=== PATIENT | female | born 1935 | race Caucasian/White ===

== ENCOUNTER 2017-01-31 13:00 | Inpatient (IN) | payer OTHER ==
[~2017-01-31] VITALS: Ht 154.9 cm; Wt 90.1 kg
[2017-01-31] MEDS ORDERED: SOD CHLORIDE 0.9% 500 ML IV STA (13:34)
[2017-01-31 13:51] LABS: ADD SCAN DIFF NO
[2017-01-31 13:53] LABS: BASOPHIL # 0.1 10^3/ul (0.0-0.1); EOSINOPHILS # 0.3 10^3/ul (0.0-0.5); EOSINOPHILS % 3.4 % (0.0-7.0); HEMATOCRIT 37.4 % (37.0-47.0); HEMOGLOBIN 12.1 g/dl (12.0-16.0); LYMPHOCYTES # 2.5 10^3/ul (0.8-2.9); LYMPHOCYTES % 28.5 % (15.0-51.0); MEAN CORPUSCULAR HEMOGLOBIN 27.8 pg (29.0-33.0); MEAN CORPUSCULAR HGB CONC 32.4 g/dl (32.0-37.0); MEAN CORPUSCULAR VOLUME 85.8 fl (82.0-101.0); MEAN PLATELET VOLUME 9.4 fl (7.4-10.4); MONOCYTE # 0.7 10^3/ul (0.3-0.9); MONOCYTES % 7.6 % (0.0-11.0); NEUTROPHIL # 5.2 10^3/ul (1.6-7.5); PLATELET COUNT 182 10^3/UL (140-415); RED BLOOD COUNT 4.36 10^6/ul (4.20-5.40); RED CELL DISTRIBUTION WIDTH 14.7 % (11.5-14.5); WHITE BLOOD COUNT 8.8 10^3/ul (4.8-10.8)
[2017-01-31] MEDS ORDERED: ASPIRIN 81 MG TAB PO ONE (14:00)
[2017-01-31] MEDS ORDERED: HYD25 PO (14:06)
[2017-01-31] MEDS ORDERED: LISI10TA2 PO (14:06)
[2017-01-31] MEDS ORDERED: ATEN100T PO (14:07)
[2017-01-31 14:13] LABS: ALANINE AMINOTRANSFERASE 36 IU/L (13-69); ALBUMIN 4.4 g/dl (3.3-4.9); ALBUMIN/GLOBULIN RATIO 1.51; ALKALINE PHOSPHATASE 75 IU/L (42-121); ANION GAP 18 (8-16); ASPARTATE AMINO TRANSFERASE 35 IU/L (15-46); BILIRUBIN,INDIRECT 0.3 mg/dl (0-1.1); BILIRUBIN,TOTAL 0.3 mg/dl (0.2-1.3); BLOOD UREA NITROGEN 17 mg/dl (7-20); CALCIUM 9.6 mg/dl (8.4-10.2); CARBON DIOXIDE 27 mmol/L (21-31); CHLORIDE 103 mmol/L (97-110); CREATININE 0.85 mg/dl (0.44-1.00); GLUCOSE 90 mg/dl (70-220); POTASSIUM 4.1 mmol/L (3.5-5.1); SODIUM 144 mmol/L (135-144); TOTAL PROTEIN 7.3 g/dl (6.1-8.1)
--- NOTE | 2017-01-31 14:15 | RADRPT ---
PROCEDURE: XR Chest. CLINICAL INDICATION: 81-year-old female with abdominal pain. TECHNIQUE: Single frontal view of the chest was obtained. COMPARISON: None FINDINGS: The soft tissues are generous. There are degenerative osteophytes in the thoracic spine with a mild levocurvature in the mid thoracic spine. The heart, cardiomediastinal silhouette and hilar structu res are normal. The pulmonary vasculature is normal. There is a left-sided aorta. The lungs are eder ar. The costophrenic angles are normal. IMPRESSION: 1. Obesity. 2. 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 3. There is no evidence of active cardiopulmonary disease. RPTAT:AAJJ Physician Marv Date Time Electronically viewed and signed by Physician Marv on 01/31/2017 14:14 EREN/
[2017-01-31 14:24] LABS: TROPONIN-I < 0.012 ng/ml (0.00-0.12)
[2017-01-31 14:40] LABS: ADD UMIC YES; UR ASCORBIC ACID 20 mg/dL (NEGATIVE); UR BACTERIA FEW /HPF (NONE SEEN); UR BILIRUBIN (Dip) NEGATIVE (NEGATIVE); UR BLOOD (Dip) NEGATIVE (NEGATIVE); UR CLARITY CLEAR (CLEAR); UR COLOR YELLOW (YELLOW); UR GLUCOSE (Dip) NEGATIVE (NEGATIVE); UR KETONES (Dip) NEGATIVE (NEGATIVE); UR LEUKOCYTE ESTERASE (Dip) 1+ Leu/ul (NEGATIVE); UR MUCUS FEW /HPF (NONE SEEN); UR NITRITE (Dip) NEGATIVE (NEGATIVE); UR RBC 2 /HPF (0-5); UR SPECIFIC GRAVITY (Dip) 1.015 (1.003-1.030); UR SQUAMOUS EPITHELIAL CELL FEW /HPF (FEW); UR TOTAL PROTEIN (Dip) NEGATIVE (NEGATIVE); UR UROBILINOGEN (Dip) NEGATIVE (NEGATIVE)
--- NOTE | 2017-01-31 14:49 | ERA ---
ER Documentation Chief Complaint Date/Time DATE: 01/31/17 TIME: 14:47 Chief Complaint left sided intermittent chest pressure x4days HPI 81-year-old woman referred here by outside clinic for episodes of chest pain for the last 3 days. Episodes are described as pressure-like, nonradiating, nonexertional lasting for about 20-30 minutes. She denies abdominal pain, no weight loss, no fevers or chills, no vomiting or diarrhea, no headache or blurry vision. Patient denies dizziness or shortness of breath. Patient denies previous episodes of similar pain. ROS All systems reviewed and are negative except as per history of present illness. Medications Home Meds Reported Medications Atenolol* (Atenolol*) 100 Mg Tablet, 100 MG PO DAILY, #30 TAB 01/31/17 Hydrochlorothiazide* (Hydrochlorothiazide*) 25 Mg Tab, 25 MG PO DAILY, #30 TAB 01/31/17 Lisinopril* (Lisinopril*) 10 Mg Tablet, 10 MG PO DAILY, #30 TAB 01/31/17 Allergies Allergies: Coded Allergies: No Known Allergy (Unverified , 01/31/17) PMhx/Soc Hypertension History of Surgery: Yes Hx Cardiac Disorders: Yes (HTN) Hx Alcohol Use: No Hx Substance Use: No Hx Tobacco Use: No Smoking Status: Never smoker FmHx Family History: No diabetes Physical Exam Vitals Vital Signs Date Time Temp Pulse Resp B/P Pulse Ox O2 Delivery O2 Flow Rate FiO2 01/31/17 15:26 98.9 60 18 169/73 98 Room Air 01/31/17 13:04 98.9 71 18 141/74 98 Physical Exam GENERAL: Well-developed, well-nourished, well-hydrated, in no apparent distress , looks nontoxic in appearance HEENT: Moist mucous membranes, pink conjunctiva, no cervical spine tenderness or step-off deformities, no goiter, no jaundice or icterus, extraocular movements intact without pain. No submandibular induration, and no pharyngeal erythema NEURO: Alert and oriented 3, cranial nerves II through XII intact bilaterally, pupils equal round reactive to light, no focal deficits or facial asymmetry, sensation intact distally Strength 5/5 in upper and lower extremities bilaterally CARDIAC: Regular rate and rhythm, no murmurs rubs or gallops LUNGS: Clear bilaterally no wheezing crackles or stridor ABDOMEN: Soft nontender, no guarding, no rigidity, no rebound, no psoas sign no obturator sign. Normoactive bowel sounds SKIN: Warm and dry to touch, no abrasions, contusions, or hematomas, no lacerations, no ecchymosis, no target lesions, and without ulcers EXTREMITIES: No clubbing cyanosis or edema, calves are bilaterally symmetrical, no Homans sign, no popliteal cord sign. Distal pulses equal and bilateral PSYCH: Normal affect without agitation or irritability Result Diagram: 01/31/17 1340 01/31/17 1340 Results 24 hrs Laboratory Tests Test 01/31/17 13:40 01/31/17 14:23 White Blood Count 8.810^3/ul Red Blood Count 4.3610^6/ul Hemoglobin 12.1g/dl Hematocrit 37.4% Mean Corpuscular Volume 85.8fl Mean Corpuscular Hemoglobin 27.8pg Mean Corpuscular Hemoglobin Concent 32.4g/dl Red Cell Distribution Width 14.7% Platelet Count 30546^3/UL Mean Platelet Volume 9.4fl Neutrophils % 59.0% Lymphocytes % 28.5% Monocytes % 7.6% Eosinophils % 3.4% Basophils % 1.0% Nucleated Red Blood Cells % 0.0/100WBC Neutrophils # 5.210^3/ul Lymphocytes # 2.510^3/ul Monocytes # 0.710^3/ul Eosinophils # 0.310^3/ul Basophils # 0.110^3/ul Nucleated Red Blood Cells # 0.010^3/ul Sodium Level 144mmol/L Potassium Level 4.1mmol/L Chloride Level 103mmol/L Carbon Dioxide Level 27mmol/L Anion Gap 18 Blood Urea Nitrogen 17mg/dl Creatinine 0.85mg/dl Glucose Level 90mg/dl Calcium Level 9.6mg/dl Total Bilirubin 0.3mg/dl Direct Bilirubin 0.00mg/dl Indirect Bilirubin 0.3mg/dl Aspartate Amino Transf (AST/SGOT) 35IU/L Alanine Aminotransferase (ALT/SGPT) 36IU/L Alkaline Phosphatase 75IU/L Troponin I < 0.012ng/ml Total Protein 7.3g/dl Albumin 4.4g/dl Globulin 2.90g/dl Albumin/Globulin Ratio 1.51 Lipase 96U/L Urine Color YELLOW Urine Clarity CLEAR Urine pH 6.0 Urine Specific [place] 1.015 Urine Ketones NEGATIVEmg/dL Urine Nitrite NEGATIVEmg/dL Urine Bilirubin NEGATIVEmg/dL Urine Urobilinogen NEGATIVEmg/dL Urine Leukocyte Esterase 1+Lance/ul Urine Microscopic RBC 2/HPF Urine Microscopic WBC 24/HPF Urine Squamous Epithelial Cells FEW/HPF Urine Bacteria FEW/HPF Urine Mucus FEW/HPF Urine Hemoglobin NEGATIVEmg/dL Urine Glucose NEGATIVEmg/dL Urine Total Protein NEGATIVEmg/dl Current Medications Medications (Trade) Dose Ordered Sig/Bailee Route PRN Reason Start Time Stop Time Status Last Admin Dose Admin Sodium Chloride (NS) 500 ml @ 500 mls/hr Q1H STAT IV 01/31/17 13:34 01/31/17 14:33 DC 01/31/17 13:47 Aspirin (Aspirin) 324 mg ONCE ONCE PO 01/31/17 14:00 01/31/17 14:01 DC 01/31/17 13:46 Cephalexin (Keflex) 500 mg ONCE ONCE PO 01/31/17 15:00 01/31/17 15:04 DC 01/31/17 15:12 Procedures/MDM IV line was established patient was placed on cardiac surgeon rhythm strip revealed a sinus rhythm at about 60 bpm with upright P and T waves. Patient was afebrile. EKG performed, read by me: 64 bpm, normal sinus rhythm, normal axis, no acute ST segment changes, narrow QRS complex, with good R-wave progression in precordial leads. Chest X-ray 1V Interpreted by me: Soft Tissue: No acute abnormalities Bones: No acute abnormalities Mediastinum/Cardiac Silhouette/Lungs: No acute abnormalities CBC and electrolytes are normal, liver function tests are normal, troponin was negative. Urine analysis was concerning for early urinary tract infection I treated her here with cephalexin 500 mg p.o. Given the patient's symptoms and referral from clinic she will be admitted to telemetry setting for continued medical management cardiology consultation. Departure Diagnosis: Primary Impression: Chest pain Qualified Code: R07.9 - Chest pain, unspecified type Additional Impression: UTI (urinary tract infection) Qualified Code: N30.00 - Acute cystitis without hematuria Condition: MARSHA Lua MD Jan 31, 2017 14:49
[2017-01-31] MEDS ORDERED: CEPHALEXIN 500 MG CAP PO ONE (15:00)
--- NOTE | 2017-01-31 15:46 | RADRPT ---
Echocardiogram Report Patient Name: FABI MIDDLETON Gender: Female Date: 1935 Study Date: 31-Jan-2017 Supervisor Liquid Yeast: Bria Can SUBHASH Location: [facility] Ref. Physician: MEHUL SWANSON Quality: Adequate Procedures: Transthoracic echocardiogram with complete 2D, M-Mode, and doppler examination. Indications: Chest Pain. 2D/M Mode Doppler Measurement Value Normal Ranges Measurement Value Normal Ranges LVIDd 2D 3.4 3.5 - 5.6 cm AV Peak Connor 1.4 m/sec LVIDs 2D 2.2 2.1 - 4.1 cm AV Peak PG 7.3 mmHg LVPWd 2D 1.0 0.6 - 1.1 cm MV E Peak Connor 0.7 m/sec IVSd 2D 1.1 0.6 - 1.1 cm MV A Peak Connor 1.0 m/sec AoR Diam 2D 2.8 2.0 - 3.7 cm MV E/A 0.7 EDV 2D 46.6 cm3 MV Decel Time 265 msec ESV 2D 10.0 cm3 MV Decel [place] 3 LA Dimen 2D 3.4 2.3 - 4.0 cm MV E/A 0.7 TR Peak Connor 3.0 m/sec TR Peak PG 34.8 mmHg RVSP 38.0 mmHg Findings Left Ventricle: Normal left ventricular systolic function. Normal left ventricular cavity size. Normal left ventricular wall thickness. Ejection fraction is visually estimated at 60 %. Tissue Doppler/Mitral Doppler indices are consistent with impaired relaxation (Stage I diastolic dysfunction). Right Ventricle: Normal right ventricular size. Normal right ventricular systolic function. Left Atrium: The left atrium is normal in size. Right Atrium: The right atrium is normal in size. Mitral Valve: Normal appearance and function of the mitral valve with trace physiologic regurgitation. Aortic Valve: No hemodynamically significant aortic stenosis by doppler. Aortic cusps appear mildly calcified. Trace aortic valve regurgitation. Tricuspid Valve: Normal appearance and function of the tricuspid valve with trace physiologic regurgitation. Estimated peak PA systolic pressure 38 mmHg. Pulmonic Valve: Pulmonic valve not well visualized. There is trace pulmonic regurgitation. Pericardium: Normal pericardium with no significant pericardial effusion. Aorta: Normal aortic root. IVC: Normal size and normal respiratory collapse consistent with normal right atrial pressure. Conclusions Normal left ventricular systolic function. Normal left ventricular cavity size. Normal left ventricular wall thickness. Ejection fraction is visually estimated at 60 %. Tissue Doppler/Mitral Doppler indices are consistent with impaired relaxation (Stage I diastolic dysfunction). Normal right ventricular size. Normal right ventricular systolic function. The left atrium is normal in size. The right atrium is normal in size. No significant valvular stenosis or regurgitation seen. Normal pericardium with no significant pericardial effusion. Electronically Signed By: Mehul Swanson 31-Jan-2017 15:45:34 -0700 Patient Name: FABI MIDDLETON Study Date: 31-Jan-2017 [id number]
--- NOTE | 2017-01-31 16:51 | CONS ---
Date/Time of Note Date/Time of Note DATE: 01/31/17 TIME: 16:46 Assessment/Plan Assessment/Plan Additional Assessment/Plan Chest pain Hypertension Preserved ejection fraction -Patient's chest discomfort is elicited with palpation of chest wall and with left arm movements and positional. Symptoms have been going on for 4-5 days. Initial cardiac enzymes are negative, ECG without any significant ischemic abnormalities. Echocardiogram with preserved ejection fraction. Would obtain serial cardiac enzymes, start antihypertensive medications. Consultation Date/Type/Reason Admit Date/Time Type of Consultation: cv Reason for Consultation Chest pain Hx of Present Illness This is an 81-year-old female with history of hypertension and arthritis who presents with chest pain. Chest discomfort has been going on for the past 4-5 days. Pain is worse with left arm movements and leaning on the left side. With sitting up, pain is improved, with sitting back, pain is worse. With exertion, discomfort is better. When she lifts her left arm or stretches, the chest discomfort is worse. There is no associated shortness of breath, dizziness or lightheadedness, nausea or sweating. She saw her primary physician today and was recommended to come to the emergency room for further evaluation and care. She denies any fevers or chills, cough or abdominal pain. 12 point review of systems was performed with all pertinent positives and negatives mentioned above and all else is negative Past Medical History Arthritis Medical History: hypertension Past Surgical History Orthopedic surgery Family History Significant Family History: no pertinent family hx Social History Alcohol Use: none Smoking Status: Never smoker Other Social History Lives at home Exam/Review of Systems Vital Signs Vitals Vital Signs Date Time Temp Pulse Resp B/P Pulse Ox O2 Delivery O2 Flow Rate FiO2 01/31/17 15:26 98.9 60 18 169/73 98 Room Air Exam No apparent distress, family at bedside Constitutional: alert, obese, oriented Head: normocephalic Neck: supple Respiratory: clear to auscultation, normal air movement Cardiovascular: other (S1-S2 heard, no murmurs appreciated), regular rate and rhythm Gastrointestinal: bowel sounds, non-tender, other (No guarding), soft Musculoskeletal: other (Tender to palpation left side of chest wall) Extremities: other (No edema seen) Results Result Diagram: 01/31/17 1340 01/31/17 1340 Results 24 hrs Laboratory Tests Test 01/31/17 13:40 01/31/17 14:23 White Blood Count 8.8 Red Blood Count 4.36 Hemoglobin 12.1 Hematocrit 37.4 Mean Corpuscular Volume 85.8 Mean Corpuscular Hemoglobin 27.8 L Mean Corpuscular Hemoglobin Concent 32.4 Red Cell Distribution Width 14.7 H Platelet Count 182 Mean Platelet Volume 9.4 Neutrophils % 59.0 Lymphocytes % 28.5 Monocytes % 7.6 Eosinophils % 3.4 Basophils % 1.0 Nucleated Red Blood Cells % 0.0 Neutrophils # 5.2 Lymphocytes # 2.5 Monocytes # 0.7 Eosinophils # 0.3 Basophils # 0.1 Nucleated Red Blood Cells # 0.0 Sodium Level 144 Potassium Level 4.1 Chloride Level 103 Carbon Dioxide Level 27 Anion Gap 18 H Blood Urea Nitrogen 17 Creatinine 0.85 Glucose Level 90 Calcium Level 9.6 Total Bilirubin 0.3 Direct Bilirubin 0.00 Indirect Bilirubin 0.3 Aspartate Amino Transf (AST/SGOT) 35 Alanine Aminotransferase (ALT/SGPT) 36 Alkaline Phosphatase 75 Troponin I < 0.012 Total Protein 7.3 Albumin 4.4 Globulin 2.90 Albumin/Globulin Ratio 1.51 Lipase 96 Urine Color YELLOW Urine Clarity CLEAR Urine pH 6.0 Urine Specific [place] 1.015 Urine Ketones NEGATIVE Urine Nitrite NEGATIVE Urine Bilirubin NEGATIVE Urine Urobilinogen NEGATIVE Urine Leukocyte Esterase 1+ H Urine Microscopic RBC 2 Urine Microscopic WBC 24 H Urine Squamous Epithelial Cells FEW Urine Bacteria FEW A Urine Mucus FEW A Urine Hemoglobin NEGATIVE Urine Glucose NEGATIVE Urine Total Protein NEGATIVE Procedures Procedures ECG was sinus rhythm, normal QRS, no significant ST-T wave abnormality seen Mehul Masters DO Jan 31, 2017 16:50
[2017-01-31 18:31] VITALS: TEMP 98.9
[2017-01-31 19:15] VITALS: PULSE 63
[2017-01-31 19:25] VITALS: PULSE 40
[2017-01-31 20:00] VITALS: BP_SYST 170; BP_SYST 222; BP_DIAS 72; BP_DIAS 89; RESP 17; Ht 154.9 cm; Wt 90.1 kg
[2017-01-31] MEDS ORDERED: ACETAMINOPHEN 325 MG TAB PO PRN (20:00)
[2017-01-31] MEDS ORDERED: hydrALAzine 20 MG INJ IV PRN (20:00)
[2017-01-31] MEDS ORDERED: NACL 0.9% 3 ML SYG IV SCH (20:00)
[2017-01-31] MEDS ORDERED: ONDANSETRON 4 MG INJ IV PRN (20:00)
[2017-01-31] MEDS ORDERED: NITROGLYCERIN (SL) 0.4 MG TAB SL PRN (20:00)
[2017-01-31] MEDS ORDERED: morphine 2 MG INJ IV PRN (20:00)
[2017-01-31] MEDS ORDERED: HYDROCODONE/APAP (5/325) TAB PO PRN (20:00)
[2017-01-31] MEDS ORDERED: ZOLPIDEM 5 MG TAB PO PRN (20:00)
[2017-01-31 20:05] VITALS: PULSE 60
[2017-01-31] MEDS: LISINOPRIL 10 MG TAB PO SCH (20:49)
[2017-01-31 22:26] LABS: CREATINE KINASE 141 IU/L (23-200)
[2017-01-31 22:35] LABS: CK-MB 1.81 ng/ml (0.0-2.4)
[2017-01-31 22:41] LABS: TROPONIN-I < 0.012 ng/ml (0.00-0.12)
[2017-02-01] VITALS: BP_SYST 162; BP_SYST 174; BP_DIAS 73; RESP 17
[2017-02-01 00:05] VITALS: PULSE 60
[2017-02-01 04:00] VITALS: BP 137/63; RESP 19
[2017-02-01 04:05] VITALS: PULSE 63
[2017-02-01 07:02] VITALS: BP 127/85; RESP 18
[2017-02-01 07:42] LABS: ADD SCAN DIFF NO
[2017-02-01 07:48] LABS: BASOPHIL # 0.1 10^3/ul (0.0-0.1); BASOPHILS % 1.2 % (0.0-2.0); EOSINOPHILS # 0.3 10^3/ul (0.0-0.5); EOSINOPHILS % 3.7 % (0.0-7.0); HEMATOCRIT 36.7 % (37.0-47.0); HEMOGLOBIN 12.1 g/dl (12.0-16.0); LYMPHOCYTES # 2.2 10^3/ul (0.8-2.9); LYMPHOCYTES % 27.9 % (15.0-51.0); MEAN CORPUSCULAR HEMOGLOBIN 28.2 pg (29.0-33.0); MEAN CORPUSCULAR VOLUME 85.5 fl (82.0-101.0); MEAN PLATELET VOLUME 10.1 fl (7.4-10.4); MONOCYTE # 0.5 10^3/ul (0.3-0.9); MONOCYTES % 6.7 % (0.0-11.0); NEUTROPHIL # 4.7 10^3/ul (1.6-7.5); PLATELET COUNT 176 10^3/UL (140-415); RED BLOOD COUNT 4.29 10^6/ul (4.20-5.40); RED CELL DISTRIBUTION WIDTH 14.5 % (11.5-14.5); WHITE BLOOD COUNT 7.8 10^3/ul (4.8-10.8)
[2017-02-01 08:07] VITALS: PULSE 73
[2017-02-01 08:20] LABS: CALCIUM 9.1 mg/dl (8.4-10.2); CHOL/HDL RATIO 4.6 RATIO; CREATININE 0.81 mg/dl (0.44-1.00); MAGNESIUM 1.7 mg/dl (1.7-2.5); POTASSIUM 3.8 mmol/L (3.5-5.1)
[2017-02-01] MEDS ORDERED: ENOXAPARIN 40 MG/0.4 ML SYG SC SCH (09:00)
[2017-02-01] MEDS ORDERED: ASPIRIN (EC) 81 MG TAB PO SCH (09:00)
--- NOTE | 2017-02-01 09:28 | PDOCDIS ---
Discharge Instructions CONDITION Patient Condition: Good HOME CARE INSTRUCTIONS: Diet Instructions: Regular ACTIVITY: Activity Restrictions: No Restrictions FOLLOW UP/APPOINTMENTS Follow-up Plan F/U WITH YOUR PCP IN 1-2 WEEKS EFREN CH Feb 01, 2017 09:27
[2017-02-01] MEDS: LISINOPRIL 10 MG TAB PO SCH (09:41)
--- NOTE | 2017-02-01 12:50 | HP ---
Date/Time of Note Date/Time of Note DATE: 02/01/17 TIME: 12:47 Assessment/Plan VTE Prophylaxis VTE Prophylaxis Intervention: LMWH Lines/Catheters IV C[facility]ter [facility]from [facility] [place] Urinary Cath still in place: No Assessment/Plan Chief Complaint/Hosp Course 1. Chest pain musculoskeletal as pain is exacerbated by movement of the arm and reproducible with palpation Cardiology consultation Trend troponins Cardiac meds 2. Hypertension-stable Continue home meds Prophylaxis: Lovenox Problems: HPI/ROS Admit Date/Time Admit Date/Time January 31, 2017 Hx of Present Illness Patient is a 1-year-old female with a history of hypertension otherwise no medical history. Patient presents with chest pain for the past several days exacerbated by movement of her arms. Patient reports a pressure-like pain, she denies any shortness of breath, nausea vomiting or diaphoresis. ROS Constitutional: improved, no complaints Eyes: no complaints ENT: no complaints Respiratory: no complaints Cardiovascular: chest pain Gastrointestinal: no complaints Genitourinary: no complaints Musculoskeletal: no complaints Skin: no complaints Neurologic: no complaints Endocrine: no complaints Lymphatic: no complaints Psychological: nl mood/affect, no complaints Immunologic: no complaints PMH/Family/Social Past Medical History Medical History: hypertension Past Surgical History Past Surgical Hx: no surgical history Family History Significant Family History: no pertinent family hx Social History Alcohol Use: none Smoking Status: Never smoker Drug Use: none Exam/Review of Systems Vital Signs Vitals Vital Signs Date Time Temp Pulse Resp B/P Pulse Ox O2 Delivery O2 Flow Rate FiO2 02/01/17 08:07 73 02/01/17 07:02 97.7 18 127/85 97 01/31/17 18:31 Room Air Intake and Output 01/31/17 01/31/17 02/01/17 15:00 23:00 07:00 Intake Total 750 ml Balance 750 ml Exam Constitutional: alert, oriented Respiratory: clear to auscultation Cardiovascular: regular rate and rhythm Gastrointestinal: soft, No distended Musculoskeletal: joint tenderness, nl extremities to inspection Labs Result Diagram: 02/01/17 0656 02/01/17 0646 EFREN CH Feb 01, 2017 12:50
--- NOTE | 2017-02-01 12:56 | DS ---
Date/Time of Note Date/Time of Note DATE: 02/01/17 TIME: 12:51 Discharge Summary Admission/Discharge Info Admit Date/Time Jan 31, 2017 at 14:50 Discharge Date/Time Feb 01, 2017 at 10:36 Discharge Diagnosis 1. Chest pain secondary to muscle skeletal pain ACS ruled out with negative troponins, echo shows no significant abnormalities 2. Hypertension: Stable Continue home meds Patient Condition: Good Consults Cardiology Hospital Course Patient is an 81-year-old female with a history of hypertension. Patient presented with chest pain ACS was ruled out. Patient was seen by cardiology troponins were negative and echo showed no significant abnormalities. Patient stated that her chest pain was worse when she moves her arms and was reproducible with palpation and was felt to be secondary to muscle skeletal pain. On the day of discharge patient's vitals, labs and physical exam are stable. She had no acute complaints and questions are answered. Home Meds Reported Medications Atenolol* (Atenolol*) 100 Mg Tablet, 100 MG PO DAILY, #30 TAB 01/31/17 Hydrochlorothiazide* (Hydrochlorothiazide*) 25 Mg Tab, 25 MG PO DAILY, #30 TAB 01/31/17 Lisinopril* (Lisinopril*) 10 Mg Tablet, 10 MG PO DAILY, #30 TAB 01/31/17 Follow-up Plan Follow-up with PCP in 1-2 weeks Primary Care Provider Not On Staff Doctor Time spent on discharge: > 30 minutes Pending Labs Laboratory Tests Test 01/31/17 13:40 01/31/17 14:23 01/31/17 22:00 02/01/17 06:46 White Blood Count 8.810^3/ul (4.8-10.8) Red Blood Count 4.3610^6/ul (4.20-5.40) Hemoglobin 12.1g/dl (12.0-16.0) Hematocrit 37.4% (37.0-47.0) Mean Corpuscular Volume 85.8fl (82.0-101.0) Mean Corpuscular Hemoglobin 27.8pg (29.0-33.0) Mean Corpuscular Hemoglobin Concent 32.4g/dl (32.0-37.0) Red Cell Distribution Width 14.7% (11.5-14.5) Platelet Count 64679^3/UL (140-415) Mean Platelet Volume 9.4fl (7.4-10.4) Neutrophils % 59.0% (39.0-77.0) Lymphocytes % 28.5% (15.0-51.0) Monocytes % 7.6% (0.0-11.0) Eosinophils % 3.4% (0.0-7.0) Basophils % 1.0% (0.0-2.0) Nucleated Red Blood Cells % 0.0/100WBC (0.0-0.0) Neutrophils # 5.210^3/ul (1.6-7.5) Lymphocytes # 2.510^3/ul (0.8-2.9) Monocytes # 0.710^3/ul (0.3-0.9) Eosinophils # 0.310^3/ul (0.0-0.5) Basophils # 0.110^3/ul (0.0-0.1) Nucleated Red Blood Cells # 0.010^3/ul (0.0-0.0) Sodium Level 144mmol/L (135-144) 139mmol/L (135-144) Potassium Level 4.1mmol/L (3.5-5.1) 3.8mmol/L (3.5-5.1) Chloride Level 103mmol/L (97-110) 107mmol/L (97-110) Carbon Dioxide Level 27mmol/L (21-31) 26mmol/L (21-31) Anion Gap 18 (8-16) 10 (8-16) Blood Urea Nitrogen 17mg/dl (7-20) 18mg/dl (7-20) Creatinine 0.85mg/dl (0.44-1.00) 0.81mg/dl (0.44-1.00) Glucose Level 90mg/dl (70-220) 118mg/dl (70-220) Calcium Level 9.6mg/dl (8.4-10.2) 9.1mg/dl (8.4-10.2) Total Bilirubin 0.3mg/dl (0.2-1.3) Direct Bilirubin 0.00mg/dl (0.00-0.20) Indirect Bilirubin 0.3mg/dl (0-1.1) Aspartate Amino Transf (AST/SGOT) 35IU/L (15-46) Alanine Aminotransferase (ALT/SGPT) 36IU/L (13-69) Alkaline Phosphatase 75IU/L (42-121) Troponin I < 0.012ng/ml (0.00-0.12) < 0.012ng/ml (0.00-0.12) Total Protein 7.3g/dl (6.1-8.1) Albumin 4.4g/dl (3.3-4.9) Globulin 2.90g/dl (1.3-3.2) Albumin/Globulin Ratio 1.51 Lipase 96U/L (23-300) Urine Color YELLOW (YELLOW) Urine Clarity CLEAR (CLEAR) Urine pH 6.0 (5.0-9.0) Urine Specific [place] 1.015 (1.003-1.030) Urine Ketones NEGATIVEmg/dL (NEGATIVE) Urine Nitrite NEGATIVEmg/dL (NEGATIVE) Urine Bilirubin NEGATIVEmg/dL (NEGATIVE) Urine Urobilinogen NEGATIVEmg/dL (NEGATIVE) Urine Leukocyte Esterase 1+Lance/ul (NEGATIVE) Urine Microscopic RBC 2/HPF (0-5) Urine Microscopic WBC 24/HPF (0-5) Urine Squamous Epithelial Cells FEW/HPF (FEW) Urine Bacteria FEW/HPF (NONE SEEN) Urine Mucus FEW/HPF (NONE SEEN) Urine Hemoglobin NEGATIVEmg/dL (NEGATIVE) Urine Glucose NEGATIVEmg/dL (NEGATIVE) Urine Total Protein NEGATIVEmg/dl (NEGATIVE) Creatine Kinase 141IU/L (23-200) Creatine Kinase Index 1.3 Creatinine Kinase MB (Mass) 1.81ng/ml (0.0-2.4) Phosphorus Level 3.0mg/dl (2.5-4.9) Magnesium Level 1.7mg/dl (1.7-2.5) Triglycerides Level 146mg/dl (0-149) Cholesterol Level 145mg/dl (100-200) LDL Cholesterol, Calculated 85mg/dl HDL Cholesterol 31mg/dl (33-92) Cholesterol/HDL Ratio 4.6RATIO Test 02/01/17 06:56 White Blood Count 7.810^3/ul (4.8-10.8) Red Blood Count 4.2910^6/ul (4.20-5.40) Hemoglobin 12.1g/dl (12.0-16.0) Hematocrit 36.7% (37.0-47.0) Mean Corpuscular Volume 85.5fl (82.0-101.0) Mean Corpuscular Hemoglobin 28.2pg (29.0-33.0) Mean Corpuscular Hemoglobin Concent 33.0g/dl (32.0-37.0) Red Cell Distribution Width 14.5% (11.5-14.5) Platelet Count 83371^3/UL (140-415) Mean Platelet Volume 10.1fl (7.4-10.4) Neutrophils % 60.0% (39.0-77.0) Lymphocytes % 27.9% (15.0-51.0) Monocytes % 6.7% (0.0-11.0) Eosinophils % 3.7% (0.0-7.0) Basophils % 1.2% (0.0-2.0) Nucleated Red Blood Cells % 0.0/100WBC (0.0-0.0) Neutrophils # 4.710^3/ul (1.6-7.5) Lymphocytes # 2.210^3/ul (0.8-2.9) Monocytes # 0.510^3/ul (0.3-0.9) Eosinophils # 0.310^3/ul (0.0-0.5) Basophils # 0.110^3/ul (0.0-0.1) Nucleated Red Blood Cells # 0.010^3/ul (0.0-0.0) Hemoglobin A1c 6.1% (0-5.9) EFREN CH Feb 01, 2017 12:56
== END 2017-02-01 10:36 | disposition home or self-care (01) | DRG 313 ==
LOC: E/R 13:00 → TEL 14:50
PROVIDERS: ADMIT Internal Medicine; ATTEND Internal Medicine
DX: R07.89 Other chest pain (principal); I10 Essential (primary) hypertension
CPT/HCPCS: 36415; 71010; 80048; 80053; 80061; 81001; 82550; 82553; 83036; 83690; 83735; 84100; 84484; 85025; 93005; 93306; J0360; J1650; J7040